=== PATIENT | female | born 1990 | race Caucasian/White ===

== ENCOUNTER → 2017-06-08 | Outpatient (CLI) | payer OTHER ==
[2017-06-08 19:41] LABS: BASO % 0.7 % (0.0-1.0); EOS # 0.1 10^3/uL (0.0-0.50); EOS % 1.6 % (0.0-3.0); HEMATOCRIT 40.2 % (36.0-47.0); HEMOGLOBIN 13.7 g/dl (12.0-16.0); IMMATURE GRANULOCYTE % 0.2 % (0-3.0); LYMPH # 2.2 10^3/uL (1.5-6.5); LYMPH % 40.6 % (24.0-44.0); MEAN CORPUSCULAR HEMOGLOBIN 29.8 pg (27.0-33.0); MEAN CORPUSCULAR HGB CONC 34.1 g/dl (32.0-36.5); MEAN CORPUSCULAR VOLUME 87.6 fl (80.0-96.0); MONO # 0.5 10^3/uL (0.0-0.8); MONO % 9.7 % (0.0-5.0); NEUTROPHILS # 2.6 10^3/uL (1.8-7.7); NEUTROPHILS % 47.2 % (36.0-66.0); PLATELET COUNT, AUTOMATED 274 10^3/uL (150-450); RED BLOOD COUNT 4.59 10^6/uL (4.00-5.40); RED CELL DISTRIBUTION WIDTH 12.3 % (11.5-14.5); WHITE BLOOD COUNT 5.5 10^3/uL (4.0-10.0)
[2017-06-08 19:59] LABS: ALBUMIN 4.5 GM/DL (3.2-5.2); ALBUMIN/GLOBULIN RATIO 1.61 (1.00-1.93); ALKALINE PHOSPHATASE 86 U/L (45-117); ALT/SGPT 17 U/L (12-78); ANION GAP 7 MEQ/L (8-16); AST/SGOT 9 U/L (7-37); BILIRUBIN,TOTAL 0.4 MG/DL (0.2-1.0); BLOOD UREA NITROGEN 11 MG/DL (7-18); CARBON DIOXIDE LEVEL 28 MEQ/L (21-32); CHLORIDE LEVEL 106 MEQ/L (98-107); CREATININE FOR GFR 0.53 MG/DL (0.55-1.30); GLOMERULAR FILTRATION RATE > 60.0 (>60); GLUCOSE, FASTING 83 MG/DL (70-100); POTASSIUM SERUM 4.5 MEQ/L (3.5-5.1); SODIUM LEVEL 141 MEQ/L (136-145); TOTAL PROTEIN 7.3 GM/DL (6.4-8.2)
== END ==
LOC: M WUC 16:44
DX: R10.84 Generalized abdominal pain (principal); R93.3 Abnormal findings on diagnostic imaging of other parts of digestive tract
CPT/HCPCS: 80053

== ENCOUNTER → 2017-06-08 | Outpatient (REF) | payer SELFPAY | LOC: M LAB REF 19:11 | DX: R10.84 Generalized abdominal pain (principal) ==

== ENCOUNTER → 2017-11-12 | Outpatient (CLI) | payer OTHER | LOC: M RAD 11:32 | DX: R10.2 Pelvic and perineal pain (principal) | CPT/HCPCS: 76856 ==

== ENCOUNTER → 2018-01-03 | Outpatient (CLI) | payer OTHER | LOC: M WUC 15:44 | DX: M79.672 Pain in left foot (principal) | CPT/HCPCS: 73630 ==

== ENCOUNTER → 2018-01-09 | Outpatient (REF) | payer OTHER | LOC: M LAB REF 13:29 | DX: Z12.4 Encounter for screening for malignant neoplasm of cervix (principal) ==

== ENCOUNTER → 2018-03-01 | Outpatient (REF) | payer OTHER ==
[2018-03-01 13:21] LABS: BASO % 0.4 % (0.0-1.0); EOS # 0.1 10^3/uL (0.0-0.50); EOS % 1.8 % (0.0-3.0); HEMATOCRIT 42.9 % (36.0-47.0); HEMOGLOBIN 14.3 g/dl (12.0-15.5); IMMATURE GRANULOCYTE % 0.1 % (0-3.0); LYMPH # 2.1 10^3/uL (1.5-6.5); LYMPH % 29.3 % (24.0-44.0); MEAN CORPUSCULAR HEMOGLOBIN 30.6 pg (27.0-33.0); MEAN CORPUSCULAR HGB CONC 33.3 g/dl (32.0-36.5); MEAN CORPUSCULAR VOLUME 91.9 fl (80.0-96.0); MONO # 0.4 10^3/uL (0.0-0.8); MONO % 5.5 % (0.0-5.0); NEUTROPHILS # 4.4 10^3/uL (1.8-7.7); NEUTROPHILS % 62.9 % (36.0-66.0); PLATELET COUNT, AUTOMATED 300 10^3/uL (150-450); RED BLOOD COUNT 4.67 10^6/uL (4.00-5.40)
[2018-03-01 13:50] LABS: FREE T4 1.06 NG/DL (0.76-1.46)
== END ==
LOC: M SFHCADAM 11:11
DX: N92.1 Excessive and frequent menstruation with irregular cycle (principal); F32.9 Major depressive disorder, single episode, unspecified
CPT/HCPCS: 84443

== ENCOUNTER → 2018-06-09 | Outpatient (REF) | payer OTHER ==
[~2018-06-09] MED LIST: COLA100C5 PO; IBUP-1114 PO; MAPA500T2 PO; VITAPRTA PO
== END ==
LOC: M LAB REF 12:02
PROVIDERS: ATTEND Physician Assistant
DX: J04.2 Acute laryngotracheitis (principal)

== ENCOUNTER → 2018-08-05 | Outpatient (REF) | payer BC ==
[2018-08-05 19:54] LABS: BASO % 0.7 % (0.0-1.0); EOS # 0.2 10^3/uL (0.0-0.50); EOS % 2.9 % (0.0-3.0); HEMOGLOBIN 13.5 g/dl (12.0-15.5); LYMPH # 1.9 10^3/uL (1.5-6.5); LYMPH % 32.1 % (24.0-44.0); MEAN CORPUSCULAR HEMOGLOBIN 30.6 pg (27.0-33.0); MEAN CORPUSCULAR HGB CONC 32.1 g/dl (32.0-36.5); MEAN CORPUSCULAR VOLUME 95.2 fl (80.0-96.0); MONO # 0.3 10^3/uL (0.0-0.8); MONO % 5.5 % (0.0-5.0); NEUTROPHILS # 3.4 10^3/uL (1.8-7.7); NEUTROPHILS % 58.5 % (36.0-66.0); PLATELET COUNT, AUTOMATED 283 10^3/uL (150-450); RED BLOOD COUNT 4.41 10^6/uL (4.00-5.40); WHITE BLOOD COUNT 5.8 10^3/uL (4.0-10.0)
[2018-08-05 20:10] LABS: ALBUMIN 4.3 GM/DL (3.2-5.2); ALT/SGPT 18 U/L (12-78); BILIRUBIN,TOTAL 0.7 MG/DL (0.2-1.0); BLOOD UREA NITROGEN 11 MG/DL (7-18); CALCIUM LEVEL 8.7 MG/DL (8.5-10.1); CARBON DIOXIDE LEVEL 30 MEQ/L (21-32); CHLORIDE LEVEL 107 MEQ/L (98-107); GLOMERULAR FILTRATION RATE > 60.0 (>60); GLUCOSE, FASTING 77 MG/DL (70-100); POTASSIUM SERUM 4.3 MEQ/L (3.5-5.1); SODIUM LEVEL 143 MEQ/L (136-145); TOTAL PROTEIN 7.6 GM/DL (6.4-8.2)
== END ==
LOC: M LABDRWAD 19:28
PROVIDERS: ATTEND Family Medicine
DX: R42 Dizziness and giddiness (principal)

== ENCOUNTER → 2018-08-08 | Outpatient (CLI) | payer BC ==
--- NOTE | 2018-08-09 01:41 | REP ---
Clinical: Pain. Technique: AP, lateral, bilateral oblique views of the left fifth toe. Findings: No obvious acute fracture or dislocation is appreciated. However subtle injury involving the distal phalanx cannot be excluded. Clinical correlation is recommended. No subcutaneous emphysema or foreign body. Impression: No definite acute fracture dislocation, but subtle injury involving the fifth toe distal phalanx cannot be excluded and warrants correlation. Electronically Signed by Gama Stringer MD 08/09/2018 01:32 A
== END ==
LOC: M WUC 14:15
PROVIDERS: ATTEND Physician Assistant
DX: M79.675 Pain in left toe(s) (principal)

== ENCOUNTER → 2018-10-15 | Outpatient (CLI) | payer BC, OTHER ==
[2018-10-15 20:28] LABS: ALBUMIN 4.2 GM/DL (3.2-5.2); ALT/SGPT 19 U/L (12-78); BILIRUBIN,TOTAL 0.2 MG/DL (0.2-1.0); BLOOD UREA NITROGEN 13 MG/DL (7-18); CALCIUM LEVEL 9.3 MG/DL (8.5-10.1); CARBON DIOXIDE LEVEL 29 MEQ/L (21-32); CHLORIDE LEVEL 106 MEQ/L (98-107); CREATININE FOR GFR 0.68 MG/DL (0.55-1.30); GLOMERULAR FILTRATION RATE > 60.0 (>60); GLUCOSE, FASTING 86 MG/DL (70-100); POTASSIUM SERUM 4.3 MEQ/L (3.5-5.1); SODIUM LEVEL 139 MEQ/L (136-145); TOTAL PROTEIN 7.1 GM/DL (6.4-8.2)
== END ==
LOC: M WUC 15:58
PROVIDERS: ATTEND Family Medicine
DX: R42 Dizziness and giddiness (principal); R19.7 Diarrhea, unspecified

== ENCOUNTER → 2018-10-25 | Outpatient (CLI) | payer BC, OTHER ==
--- NOTE | 2018-10-25 11:56 | REPVR ---
EXAM: MR Head Without and With Contrast EXAM DATE/TIME: 10/25/2018 9:36 AM CLINICAL HISTORY: 28 years old, female; Patient HX: Dizziness and h/a increasing in frequency and severity; Additional info: Vertigo TECHNIQUE: Imaging protocol: MR of the head without and with intravenous contrast. Contrast material: PROHANCE;Contrast volume: 11 ml;Contrast route: 23G BUTTERFLY; COMPARISON: No relevant prior studies available. FINDINGS: Brain: Normal. No acute infarct. No hemorrhage. No significant white matter disease. No edema. Ventricles: Normal. No ventriculomegaly. Bones/joints: Unremarkable. Soft tissues: Normal. Sinuses: Normal as visualized. No acute sinusitis. Mastoid air cells: Normal as visualized. No mastoid effusion. Orbits: Unremarkable. There is no abnormal enhancement. IMPRESSION: No acute findings. Electronically signed by: Matthew Lindo On 10/25/2018 11:56:28 AM
== END ==
LOC: M PLARAD 07:43
PROVIDERS: ATTEND Family Medicine
DX: R42 Dizziness and giddiness (principal)

== ENCOUNTER 2019-01-07 06:34 | Day surgery (SDC) | payer BC, OTHER ==
[~2019-01-07] VITALS: Ht 172.7 cm; Wt 78.0 kg
[~2019-01-07 06:34] MED LIST changes: +CETI10TA4 PO; +LAMI1TAB9 PO; +SERO150T2 PO; +WELLTAB38 PO
[2019-01-07] MEDS ORDERED: LIDOCAINE 2% INJ 100 MG/5 ML SDV (FOR ANES.) As Ordered ONE (07:02)
[2019-01-07] MEDS ORDERED: PROPOFOL 200 MG/20 ML VIAL As Ordered ONE (07:02)
[2019-01-07] MEDS: NS 1,000 ML IV ONE (07:02)
--- NOTE | 2019-01-07 07:59 | ROOR ---
Patient Name: Ajay Branch Procedure Date: 01/07/2019 7:32 AM Date of : 1990 Age: 28 Room: [facility] Gender: Female Note Status: Finalized Procedure: Colonoscopy Indications: Generalized abdominal pain, Change in bowel habits, Constipation Providers: Martinez CONTRERAS MD Referring MD: Rosemary GOMES DO Requesting Provider: Medicines: Monitored Anesthesia Care Complications: No immediate complications. Procedure: Pre-Anesthesia Assessment: - The heart rate, respiratory rate, oxygen saturations, blood pressure, adequacy of pulmonary ventilation, and response to care were monitored throughout the procedure. The Colonoscope was introduced through the anus and advanced to the cecum, identified by appendiceal orifice and ileocecal valve. The colonoscopy was performed without difficulty. The patient tolerated the procedure well. The quality of the bowel preparation was adequate and fair. The bowel preparation used was TriLyte and magnesium citrate. Findings: The perianal and digital rectal examinations were normal. Small Internal Hemorrhoids. The entire examined colon appeared normal on direct and retroflexion views. The terminal ileum appeared normal. Impression: - Preparation of the colon was fair/adequate after lavage. - Small Internal Hemorrhoids. - The entire colon is normal on direct and retroflexion views. - The examined portion of the ileum was normal. - No specimens collected. Recommendation: - Continue present medications. Martinez Contreras MD Martinez CONTRERAS MD 01/07/2019 7:58:31 AM Electronically signed by Martinez CONTRERAS MD Number of Addenda: 0 Note Initiated On: 01/07/2019 7:32 AM Estimated Blood Loss: Estimated blood loss: none.
[2019-01-07 08:10] VITALS: BP 123/68
== END 2019-01-07 08:16 | disposition home or self-care (01) ==
LOC: M OPP 06:34
PROVIDERS: ATTEND Internal Medicine Gastroenterology
DX: R10.9 Unspecified abdominal pain (principal); K59.00 Constipation, unspecified; K64.8 Other hemorrhoids; M41.9 Scoliosis, unspecified; F41.9 Anxiety disorder, unspecified; F31.9 Bipolar disorder, unspecified; Z79.899 Other long term (current) drug therapy

== ENCOUNTER → 2019-04-09 | Outpatient (CLI) | payer BC ==
[~2019-04-09] MED LIST changes: +GASTROGRAFIN SOLUTION 30ML (Q9963) As Ordered ONE; +ISOVUE-370 76% 100ML VIAL (Q9967) As Ordered ONE
[2019-04-09 13:33] LABS: BASO # 0.1 10^3/uL (0.0-0.2); BASO % 0.5 % (0.0-1.0); EOS # 0.2 10^3/uL (0.0-0.5); EOS % 1.2 % (0.0-3.0); HEMATOCRIT 44.4 % (36.0-47.0); HEMOGLOBIN 14.6 g/dl (12.0-15.5); LYMPH # 3.2 10^3/uL (1.5-5.0); LYMPH % 24.7 % (24.0-44.0); MEAN CORPUSCULAR HEMOGLOBIN 30.7 pg (27.0-33.0); MEAN CORPUSCULAR HGB CONC 32.9 g/dl (32.0-36.5); MEAN CORPUSCULAR VOLUME 93.3 fl (80.0-96.0); MONO # 0.8 10^3/uL (0.0-0.8); MONO % 5.8 % (0.0-5.0); NEUTROPHILS # 8.7 10^3/uL (1.5-8.5); PLATELET COUNT, AUTOMATED 371 10^3/uL (150-450); RED BLOOD COUNT 4.76 10^6/uL (4.00-5.40); URINE PREG TEST NEGATIVE (NEGATIVE); WHITE BLOOD COUNT 12.9 10^3/uL (4.0-10.0)
[2019-04-09 14:06] LABS: ALBUMIN 4.4 GM/DL (3.2-5.2); ALT/SGPT 21 U/L (12-78); BILIRUBIN,TOTAL 0.4 MG/DL (0.2-1.0); BLOOD UREA NITROGEN 10 MG/DL (7-18); CALCIUM LEVEL 9.1 MG/DL (8.5-10.1); CARBON DIOXIDE LEVEL 30 MEQ/L (21-32); CHLORIDE LEVEL 105 MEQ/L (98-107); CREATININE FOR GFR 0.75 MG/DL (0.55-1.30); GLOMERULAR FILTRATION RATE > 60.0 (>60); GLUCOSE, FASTING 86 MG/DL (70-100); POTASSIUM SERUM 4.2 MEQ/L (3.5-5.1); SODIUM LEVEL 139 MEQ/L (136-145); TOTAL PROTEIN 7.5 GM/DL (6.4-8.2)
--- NOTE | 2019-04-09 16:06 | REP ---
CT abdomen and pelvis with IV and oral contrast: HISTORY: Right lower quadrant pain. No comparison CT study. CT contrast dose: 100 ml of intravenous Isovue 370. Findings: Preliminary digital prosthodontist/educator radiograph demonstrates surgical stabilization fusion of fusion fazal in the thoracolumbar spine extending bilaterally to the L3 level. Bowel gas pattern shows moderate stool in the right colon and gaseous distension in the transverse colon. The lung bases show no significant abnormality on axial CT images. The liver and the spleen are normal in size homogeneous in texture. No abnormality is noted in the gallbladder or the pancreas. The kidneys enhance symmetrically and appear morphologically intact. There is some spray artifact emanating from the metallic spine fusion hardware throughout the upper abdomen. No retroperitoneal mass or adenopathy is observed. The cecum is quite low in the pelvis. The appendix is not confidently identified but no inflammatory changes are seen adjacent to the cecum. No abdominal wall defect is observed. There are small cystic areas in each ovary. No uterine abnormality is observed. Small and large bowel loops are unremarkable by CT. There is moderate stool in the right colon. No obstruction is seen. Impression: No acute abdominal abnormality or pelvic abnormality. Thoracolumbar spine fusion with scoliotic curve. Electronically Signed by Donovan Pinto MD 04/09/2019 04:45 P
== END ==
LOC: M RAD 13:05
PROVIDERS: ATTEND Family Medicine
DX: R10.31 Right lower quadrant pain (principal); Z98.1 Arthrodesis status; M41.34 Thoracogenic scoliosis, thoracic region; N83.201 Unspecified ovarian cyst, right side; N83.202 Unspecified ovarian cyst, left side
CPT/HCPCS: 36415; 74177; 80053; 84703; 85025; Q9963; Q9967

== ENCOUNTER → 2019-06-04 | Outpatient (REF) | payer BC ==
[~2019-06-04] MED LIST changes: -GASTROGRAFIN SOLUTION 30ML (Q9963) As Ordered ONE; -ISOVUE-370 76% 100ML VIAL (Q9967) As Ordered ONE
[2019-06-04 13:09] LABS: BASO % 0.7 % (0.0-1.0); EOS # 0.1 10^3/uL (0.0-0.5); EOS % 0.9 % (0.0-3.0); HEMATOCRIT 40.8 % (36.0-47.0); HEMOGLOBIN 13.3 g/dl (12.0-15.5); LYMPH # 2.1 10^3/uL (1.5-5.0); LYMPH % 36.9 % (24.0-44.0); MEAN CORPUSCULAR HEMOGLOBIN 29.8 pg (27.0-33.0); MEAN CORPUSCULAR HGB CONC 32.6 g/dl (32.0-36.5); MEAN CORPUSCULAR VOLUME 91.5 fl (80.0-96.0); MONO # 0.3 10^3/uL (0.0-0.8); MONO % 5.7 % (0.0-5.0); NEUTROPHILS # 3.2 10^3/uL (1.5-8.5); NEUTROPHILS % 55.6 % (36.0-66.0); PLATELET COUNT, AUTOMATED 295 10^3/uL (150-450); RED BLOOD COUNT 4.46 10^6/uL (4.00-5.40); WHITE BLOOD COUNT 5.8 10^3/uL (4.0-10.0)
[2019-06-04 13:24] LABS: ALBUMIN 4.5 GM/DL (3.2-5.2); ALT/SGPT 23 U/L (12-78); BILIRUBIN,TOTAL 0.4 MG/DL (0.2-1.0); BLOOD UREA NITROGEN 9 MG/DL (7-18); CALCIUM LEVEL 8.8 MG/DL (8.5-10.1); CARBON DIOXIDE LEVEL 30 MEQ/L (21-32); CHLORIDE LEVEL 108 MEQ/L (98-107); CREATININE FOR GFR 0.75 MG/DL (0.55-1.30); FREE T4 0.89 NG/DL (0.76-1.46); GLOMERULAR FILTRATION RATE > 60.0 (>60); GLUCOSE, FASTING 82 MG/DL (70-100); IRON (FE) 161 UG/DL (50-170); POTASSIUM SERUM 4.5 MEQ/L (3.5-5.1); SODIUM LEVEL 142 MEQ/L (136-145); TOTAL PROTEIN 7.2 GM/DL (6.4-8.2)
== END ==
LOC: M SFHCADAM 09:59
PROVIDERS: ATTEND Family Medicine
DX: R42 Dizziness and giddiness (principal); R53.83 Other fatigue

== ENCOUNTER 2019-10-31 10:23 | Emergency (ER) | payer BC ==
[2019-12-07 17:08] LABS: HEMATOCRIT 38.3 % (36.0-47.0); HEMOGLOBIN 12.4 g/dl (12.0-15.5); MEAN CORPUSCULAR HEMOGLOBIN 27.9 pg (27.0-33.0); MEAN CORPUSCULAR HGB CONC 32.4 g/dl (32.0-36.5); MEAN CORPUSCULAR VOLUME 86.1 fl (80.0-96.0); PLATELET COUNT, AUTOMATED 329 10^3/uL (150-450); RED BLOOD COUNT 4.45 10^6/uL (4.00-5.40); WHITE BLOOD COUNT 6.4 10^3/uL (4.0-10.0)
--- NOTE | 2019-12-19 14:32 | REP ---
LIMITED ABDOMINAL ULTRASOUND: HISTORY: Periumbilical pain. TECHNIQUE: Directed real time, farris scale and color evaluation using linear high frequency transducer. FINDINGS: Ultrasound examination of the periumbilical region demonstrates a nonreducible fat-containing periumbilical hernia measuring approximately 2 cm diameter. Peritoneal defect measures between 6.3 mm and 8.1 mm on rest and Valsalva, respectively. No associated bowel herniation. IMPRESSION: Small nonreducible fat-containing periumbilical hernia. MTDD
--- NOTE | 2019-12-19 14:34 | REP ---
ANTERIOR ABDOMINAL WALL ULTRASOUND: HISTORY: Periumbilical pain. FINDINGS: Real time sonographic evaluation of the periumbilical wall performed. There is a small defect in the anterior abdominal wall at the umbilicus consistent with a small umbilical hernia. This appears to contain a small amount of peritoneal fat, but no bowel. The diameter of the defect at rest is 6 mm and with Valsalva maneuver is 8 mm. IMPRESSION: Small umbilical hernia containing fat but no bowel, as discussed above. MTDD
[2020-01-10 11:22] LABS: ALBUMIN 3.9 GM/DL (3.2-5.2); ALT/SGPT 28 U/L (12-78); BILIRUBIN,DIRECT 0.1 MG/DL (0.0-0.2); BILIRUBIN,TOTAL 0.3 MG/DL (0.2-1.0); BLOOD UREA NITROGEN 8 MG/DL (7-18); CALCIUM LEVEL 8.8 MG/DL (8.5-10.1); CARBON DIOXIDE LEVEL 28 MEQ/L (21-32); CHLORIDE LEVEL 108 MEQ/L (98-107); CREATININE FOR GFR 0.66 MG/DL (0.55-1.30); GLOMERULAR FILTRATION RATE > 60.0 (>60); GLUCOSE, FASTING 84 MG/DL (70-100); HCG, SERUM QUALITATIVE NEGATIVE (NEGATIVE); LIPASE 33 U/L (73-393); SODIUM LEVEL 141 MEQ/L (136-145); TOTAL PROTEIN 6.8 GM/DL (6.4-8.2)
== END 2019-10-31 13:57 | disposition home or self-care (01) ==
LOC: M ED 10:23
DX: K42.9 Umbilical hernia without obstruction or gangrene (principal); K59.00 Constipation, unspecified

== ENCOUNTER → 2019-12-02 | Outpatient (REF) | payer BC ==
[~2019-12-02] MED LIST changes: +APAP500T10 PO; +AUGM875T28 PO; +FAMO1TAB11; +FLUT50SP33 NARES; +GNP200CA2 PO; +LACT10SO3 PO; +VENL75CA47 PO
[2019-12-02 23:00] LABS: CHLAMYDIA DNA AMPLIFICATION NEGATIVE (NEGATIVE); GC DNA AMPLIFICATION NEGATIVE (NEGATIVE)
== END ==
LOC: M LAB REF 19:23
PROVIDERS: ATTEND Physician Assistant
DX: R10.84 Generalized abdominal pain (principal)

== ENCOUNTER 2019-12-04 10:19 | Emergency (ER) | payer BC ==
[~2019-12-04] VITALS: Ht 172.7 cm; Wt 85.9 kg
[~2019-12-04 10:19] MED LIST changes: -APAP500T10 PO; -AUGM875T28 PO; -FAMO1TAB11; -FLUT50SP33 NARES; -GNP200CA2 PO; -LACT10SO3 PO; -VENL75CA47 PO
[2019-12-04 11:09] LABS: BASO # 0.1 10^3/uL (0.0-0.2); BASO % 0.6 % (0.0-1.0); EOS # 0.1 10^3/uL (0.0-0.5); EOS % 1.6 % (0.0-3.0); HEMATOCRIT 39.7 % (36.0-47.0); HEMOGLOBIN 13.2 g/dl (12.0-15.5); LYMPH # 2.5 10^3/uL (1.5-5.0); LYMPH % 31.3 % (24.0-44.0); MEAN CORPUSCULAR HEMOGLOBIN 28.6 pg (27.0-33.0); MEAN CORPUSCULAR HGB CONC 33.2 g/dl (32.0-36.5); MEAN CORPUSCULAR VOLUME 86.1 fl (80.0-96.0); MONO # 0.6 10^3/uL (0.0-0.8); MONO % 6.9 % (0.0-5.0); NEUTROPHILS # 4.7 10^3/uL (1.5-8.5); NEUTROPHILS % 59.5 % (36.0-66.0); PLATELET COUNT, AUTOMATED 320 10^3/uL (150-450); RED BLOOD COUNT 4.61 10^6/uL (4.00-5.40)
[2019-12-04 11:24] LABS: HCG, SERUM QUALITATIVE NEGATIVE (NEGATIVE)
[2019-12-04 11:26] LABS: ALBUMIN 4.2 GM/DL (3.2-5.2); ALT/SGPT 29 U/L (12-78); BILIRUBIN,DIRECT 0.1 MG/DL (0.0-0.2); BILIRUBIN,TOTAL 0.6 MG/DL (0.2-1.0); BLOOD UREA NITROGEN 11 MG/DL (7-18); CALCIUM LEVEL 9.1 MG/DL (8.5-10.1); CARBON DIOXIDE LEVEL 29 MEQ/L (21-32); CHLORIDE LEVEL 106 MEQ/L (98-107); CREATININE FOR GFR 0.63 MG/DL (0.55-1.30); GLOMERULAR FILTRATION RATE > 60.0 (>60); GLUCOSE, FASTING 97 MG/DL (70-100); LIPASE 57 U/L (73-393); SODIUM LEVEL 138 MEQ/L (136-145); TOTAL PROTEIN 7.5 GM/DL (6.4-8.2)
--- NOTE | 2019-12-04 11:40 | REPVR ---
PROCEDURE INFORMATION: Exam: US Abdomen, Limited; Right Upper Quadrant Exam date and time: 12/04/2019 11:31 AM Age: 29 years old Clinical indication: Abdominal pain; Acute; Additional info: Pain with palpation ruq TECHNIQUE: Imaging protocol: US abdomen. Real time ultrasound with image documentation. Limited exam focused on the right upper quadrant. COMPARISON: CT ABD PELVIS WITH CONTRAST 04/09/2019 3:06 PM FINDINGS: Liver: No focal hepatic mass. Gallbladder: No cholelithiasis, gallbladder wall edema, or pericholecystic fluid. Common bile duct: Normal caliber of the common bile duct measuring 5 mm in diameter. Pancreas: No acute sonographic abnormality in the visualized pancreas. Right kidney: 3 cm nodular isoechoic lesion , believed to represent a column of Louie, which can be confirmed with contrast enhanced CT, as clinically indicated. No hydronephrosis. IMPRESSION: 3 cm nodular isoechoic lesion in the right kidney, believed to represent a column of Louie, which can be confirmed with contrast enhanced CT, as clinically indicated. Electronically signed by: Wayne Méndez On 12/04/2019 11:39:44 AM
[2019-12-04 12:15] VITALS: BP 117/74
--- NOTE | 2019-12-06 15:26 | ED PDOC ---
Post-Departure Follow-Up dr tapia faxed formal report of gb us for fu Kemal Parker MD Dec 06, 2019 15:26
== END 2019-12-04 12:16 | disposition home or self-care (01) ==
LOC: M ED 10:19
DX: R10.9 Unspecified abdominal pain (principal); R11.0 Nausea; Z79.899 Other long term (current) drug therapy; Z87.440 Personal history of urinary (tract) infections

== ENCOUNTER → 2019-12-14 | Outpatient (CLI) | payer BC ==
[~2019-12-14] MED LIST changes: +APAP500T10 PO; +AUGM875T28 PO; +FAMO1TAB11; +FLUT50SP33 NARES; +GNP200CA2 PO; +LACT10SO3 PO; +VENL75CA47 PO
== END ==
LOC: M LABSMTC 08:58
PROVIDERS: ATTEND Anesthesiology
DX: Z01.818 Encounter for other preprocedural examination (principal); Z11.59 Encounter for screening for other viral diseases; Z20.828 Contact with and (suspected) exposure to other viral communicable diseases
CPT/HCPCS: C9803; U0003

== ENCOUNTER 2019-12-19 07:39 | Day surgery (SDC) | payer BC ==
[~2019-12-19] VITALS: Ht 172.7 cm; Wt 87.5 kg
[~2019-12-19 07:39] MED LIST changes: -APAP500T10 PO; -AUGM875T28 PO; +BUPIVACAINE/EPIN 0.25% 30 ML VIAL As Ordered ONE; -FAMO1TAB11; -FLUT50SP33 NARES; -GNP200CA2 PO; -LACT10SO3 PO; +LR 1,000 ML IV ONE; -VENL75CA47 PO; +ceFAZolin SOD 2 GM in IV 1 EA IV ONE
[2019-12-19] MEDS ORDERED: ACETAMINOPHEN 1000MG 100ML IV BTL (OFIRMEV) (J0131 PER 10MG) As Ordered ONE (08:01)
[2019-12-19] MEDS ORDERED: ROCURONIUM BROMIDE 50 MG/5 ML VIAL As Ordered ONE (08:01)
[2019-12-19] MEDS ORDERED: propofoL 200 MG/20 ML VIAL As Ordered ONE ×2 (08:01→09:58)
[2019-12-19] MEDS ORDERED: ONDANSETRON 4MG/2ML VIAL As Ordered ONE (08:01)
[2019-12-19] MEDS ORDERED: dexameTHASONE 4 MG/ML 1ML VIAL (J1100 PER 1MG) As Ordered ONE (08:01)
[2019-12-19] MEDS ORDERED: LIDOCAINE 2% 100MG/5ML SDV (FOR ANES.) As Ordered ONE (08:01)
[2019-12-19] MEDS ORDERED: MIDAZOLAM INJ 2MG/2ML VIAL (J2250 PER 1MG) As Ordered ONE (08:01)
[2019-12-19] MEDS ORDERED: SUGAMMADEX SODIUM 500 MG/5 ML VIAL (BRIDION) As Ordered ONE (08:01)
[2019-12-19] MEDS ORDERED: KETOROLAC 60MG 2ML VIAL As Ordered ONE (08:01)
[2019-12-19] MEDS ORDERED: fentaNYL 100 MCG/2 ML INJECTION (J3010) As Ordered ONE ×2 (08:01→09:46)
[2019-12-19] MEDS ORDERED: LACT10SO3 PO (08:40)
[2019-12-19] MEDS ORDERED: VENL75CA47 PO (08:40)
[2019-12-19] MEDS ORDERED: ceFAZolin 2 GM/D5W 50 ML IV BAG (J0690 PER 500MG) As Ordered ONE (08:44)
[2019-12-19] MEDS ORDERED: oxyCODONE 5MG TAB As Ordered ONE ×2 (10:34→12:35)
[2019-12-19] MEDS: oxyCODONE 5MG TAB PO PRN ×2 (10:38→12:35)
[2019-12-19] MEDS ORDERED: LR 1,000 ML IV SCH (11:00)
[2019-12-19] MEDS ORDERED: ONDANSETRON 4MG/2ML VIAL IV PRN (11:00)
[2019-12-19] MEDS ORDERED: NORCO, ANEXSIA 5/325MG TABLET (HYDROcodone/ACETAMINOPHEN) PO PRN (11:00)
[2019-12-19] MEDS ORDERED: HYDROMORPHONE HCL 0.5 MG/ 0.5 ML SYRINGE (J1170 PER 1) IV PRN (11:00)
[2019-12-19] MEDS ORDERED: fentaNYL 100 MCG/2 ML INJECTION (J3010) IV PRN (11:00)
[2019-12-19 13:00] VITALS: BP 106/69
--- NOTE | 2020-01-05 08:19 | RO ---
DATE OF OPERATION: 12/19/19 PREOPERATIVE DIAGNOSIS: Incarcerated umbilical hernia. POSTOPERATIVE DIAGNOSIS: Incarcerated umbilical hernia. PROCEDURE: Robotic incarcerated umbilical hernia repair. SURGEON: Juan Garcias DO ASSIST: Jordyn Ramires ANESTHESIA: General. EBL: 5. COMPLICATIONS: None. INDICATIONS FOR PROCEDURE: The patient is a 29-year-old female who presents with periumbilical pain, found to have a very small incarcerated umbilical hernia. Recommendation was to proceed with robotic repair. Risks and benefits of the procedure not limited to but including bleeding, infection, hernia recurrence, hernia formation, damage to surrounding structures, need for further surgery were discussed in detail with the patient. Informed consent was obtained and procedure was planned. PROCEDURE: The patient was brought back to operating room #7. After sufficient sedation the abdomen was sterilely prepped and draped. Time out was done confirming proper patient, proper procedure. Following that, an 8 mm incision was made in the left lower quadrant and Veress needle was inserted, and the abdomen was insufflated to 15 mmHg. Veress needle was removed and an 8 mm Optiview robotic port was used to gain access to the abdomen. Once the abdomen was entered two more 8 mm ports were placed. The robot was docked to the ports from the console. The preperitoneum was entered superior to the umbilicus with horizontal incision to the preperitoneal space. Preperitoneal space was dissected inferiorly circumferentially around the umbilical defect which measured less than 1 cm. There was a small non-preperitoneal fat was incarcerated through this defect that was reduced. Once the area was cleared #0 Stratafix suture was used to close the defect. Once that was completed a 5 cm round piece of ProGrip mesh was placed over top of the defect and surrounding area due to fascial weakness in the area. Once this was completed the peritoneum was closed over top of it with 2-0 V-Loc. The abdomen was desufflated, skin incisions were closed with 4-0 Vicryl subcuticular sutures. The abdomen was cleaned and dried; Steri-Strips, 4 x 4 and tape were applied. This ended the procedure. [facility]OSPITALWilliam
== END 2019-12-19 14:00 | disposition home or self-care (01) ==
LOC: M OPP 07:39
PROVIDERS: ATTEND Surgery
DX: K42.0 Umbilical hernia with obstruction, without gangrene (principal); F42.9 Obsessive-compulsive disorder, unspecified; F41.9 Anxiety disorder, unspecified; D64.9 Anemia, unspecified; Z79.899 Other long term (current) drug therapy
CPT/HCPCS: 49653; 81025; C1781; J0131; J0690; J1100; J1885; J2250; J2405; J3010; S2900

== ENCOUNTER 2019-12-25 20:24 | Emergency (ER) | payer BC ==
[~2019-12-25] VITALS: Ht 172.7 cm; Wt 86.5 kg
[~2019-12-25 20:24] MED LIST changes: -BUPIVACAINE/EPIN 0.25% 30 ML VIAL As Ordered ONE; +LACT10SO3 PO; -LR 1,000 ML IV ONE; +VENL75CA47 PO; -ceFAZolin SOD 2 GM in IV 1 EA IV ONE
[2019-12-25 20:26] VITALS: BP 129/79
[2019-12-25] MEDS ORDERED: FLUT50SP33 NARES (20:35)
[2019-12-25] MEDS ORDERED: AUGM875T28 PO (20:35)
[2019-12-25] MEDS ORDERED: APAP500T10 PO (20:36)
[2019-12-25] MEDS ORDERED: GNP200CA2 PO (20:38)
== END 2019-12-25 22:46 | disposition left against medical advice (07) ==
LOC: M ED 20:24
DX: Z53.21 Procedure and treatment not carried out due to patient leaving prior to being seen by health care provider (principal)

== ENCOUNTER 2019-12-29 09:31 | Emergency (ER) | payer BC ==
[~2019-12-29] VITALS: Ht 172.7 cm; Wt 88.6 kg
[~2019-12-29 09:31] MED LIST changes: +APAP500T10 PO; +AUGM875T28 PO; +FLUT50SP33 NARES; +GNP200CA2 PO
[2019-12-29] MEDS ORDERED: FAMO1TAB11 (09:39)
[2019-12-29] MEDS ORDERED: IBUPROFEN 800 MG TAB PO ONE (11:30)
--- NOTE | 2019-12-29 13:29 | REPVR ---
PROCEDURE INFORMATION: Exam: US Abdomen; Limited Exam date and time: 12/29/2019 1:06 PM Age: 29 years old Clinical indication: Abdominal pain; Tenderness; Left upper quadrant (luq); Prior surgery; Surgery date: <1 month; Additional info: Pain luq concern for new hernia formation at surgiccal site TECHNIQUE: Imaging protocol: Limited ultrasound of the left upper quadrant. COMPARISON: GALLBLADDER US 12/04/2019 11:04 AM FINDINGS: No focal mass or fluid collection is identified in the visualized left upper quadrant. Note the abdominal viscera were not visualized on the images obtained. IMPRESSION: No focal mass or fluid collection is identified in the visualized left upper quadrant. Electronically signed by: Wayne Méndez On 12/29/2019 13:29:00 PM
[2019-12-29 14:08] VITALS: BP 126/78
== END 2019-12-29 14:10 | disposition home or self-care (01) ==
LOC: M ED 09:31
DX: G89.18 Other acute postprocedural pain (principal); Z79.899 Other long term (current) drug therapy; J30.9 Allergic rhinitis, unspecified

== ENCOUNTER → 2020-01-05 | Outpatient (CLI) | payer BC ==
[~2020-01-05] MED LIST changes: +FAMO1TAB11
== END ==
LOC: M RAD 07:55
PROVIDERS: ATTEND Internal Medicine Gastroenterology
DX: Z53.9 Procedure and treatment not carried out, unspecified reason (principal); K82.8 Other specified diseases of gallbladder; R11.0 Nausea; R10.84 Generalized abdominal pain

== ENCOUNTER → 2020-01-15 | Outpatient (REF) | payer BC | LOC: M SFHCWAGY 13:12 | PROVIDERS: ATTEND Nurse Practitioner Women's Health | DX: Z12.4 Encounter for screening for malignant neoplasm of cervix (principal) | CPT/HCPCS: 87624; G0123 ==

== ENCOUNTER → 2020-01-28 | Outpatient (CLI) | payer BC | LOC: M LABSMTC 14:26 | PROVIDERS: ATTEND Anesthesiology | DX: Z01.818 Encounter for other preprocedural examination (principal) | CPT/HCPCS: C9803; U0003 ==

== ENCOUNTER 2020-02-02 14:52 | Day surgery (SDC) | payer BC ==
[~2020-02-02] VITALS: Ht 172.7 cm; Wt 86.2 kg
[~2020-02-02 14:52] MED LIST changes: +NS 1,000 ML IV ONE
[2020-02-02] MEDS ORDERED: fentaNYL 100 MCG/2 ML INJECTION (J3010) As Ordered ONE (16:21)
[2020-02-02] MEDS ORDERED: propofoL 200 MG/20 ML VIAL As Ordered ONE ×2 (16:27→16:32)
[2020-02-02] MEDS ORDERED: LIDOCAINE 2% 100MG/5ML SDV (FOR ANES.) As Ordered ONE (16:27)
--- NOTE | 2020-02-02 16:43 | ROOR ---
Patient Name: Ajay Branch Procedure Date: 02/02/2020 4:26 PM Date of : 1990 Age: 29 Room: [facility] Gender: Female Note Status: Finalized Procedure: Upper GI endoscopy Indications: Nausea Providers: Martinez CONTRERAS MD Referring MD: Rosemary GOMES DO Requesting Provider: Medicines: Monitored Anesthesia Care Complications: No immediate complications. Procedure: Pre-Anesthesia Assessment: - The heart rate, respiratory rate, oxygen saturations, blood pressure, adequacy of pulmonary ventilation, and response to care were monitored throughout the procedure. The Endoscope was introduced through the mouth, and advanced to the second part of duodenum. The upper GI endoscopy was accomplished without difficulty. The patient tolerated the procedure well. Findings: The examined esophagus was normal. Localized mild inflammation characterized by erythema was found at the incisura. Biopsies were taken with a cold forceps for histology. The stomach was otherwise normal. The examined duodenum was normal. Impression: - Normal esophagus. - A small patch of mild gastritis (unknown significance). Biopsied. - Otherwise normal stomach. - Normal examined duodenum. Recommendation: - No ibuprofen, naproxen, or other non-steroidal anti-inflammatory drugs. - Use Pepcid (famotidine) 20 mg PO BID. - Telephone endoscopist for pathology results in 2 weeks. - (await results of your gallbladder nuclear scan) Martinez Contreras MD Martinez CONTRERAS MD 02/02/2020 4:42:21 PM Electronically signed by Martinez CONTRERAS MD Number of Addenda: 0 Note Initiated On: 02/02/2020 4:26 PM Estimated Blood Loss: Estimated blood loss: none.
[2020-02-02 17:00] VITALS: BP 116/67
== END 2020-02-02 17:26 | disposition home or self-care (01) ==
LOC: M OPP 14:52
PROVIDERS: ATTEND Internal Medicine Gastroenterology
DX: R11.0 Nausea (principal); K29.70 Gastritis, unspecified, without bleeding; D13.1 Benign neoplasm of stomach; F41.9 Anxiety disorder, unspecified; F31.9 Bipolar disorder, unspecified; Z79.899 Other long term (current) drug therapy; Z80.0 Family history of malignant neoplasm of digestive organs
CPT/HCPCS: 43239; 88305; J3010

== ENCOUNTER → 2020-02-12 | Outpatient (CLI) | payer BC ==
[~2020-02-12] MED LIST changes: -NS 1,000 ML IV ONE
--- NOTE | 2020-02-12 17:59 | REP ---
INDICATION: LOWER ABDOMINAL PAIN. COMPARISON: 10/31/2019 TECHNIQUE: Two-view supine abdomen FINDINGS: Gas pattern shows scattered stool in the right transverse colon moderate stool in the left and smaller amounts in the rectosigmoid no definite evidence of a significant constipation or obstruction small bowel loops are not dilated. There is a dextro rotatory curve thoracolumbar spine and Vilchis rods are seen extending down to the L3 level with pedicle screws and arch bars. No abnormal calcifications over the renal fossa or expected course of the ureters. Pelvic phleboliths is seen in the right true pelvis. Bony pelvis and sacrum are unremarkable. Hips intact IMPRESSION: 1. Nonspecific gas pattern without obstruction, mass, dilated bowel loops or any significant constipation. 2. Vilchis rods seen extending to the L3 level with pedicle screws and arch bars. 3. No abnormal soft tissue calcifications or significant degenerative changes in the sacrum, pelvis or hips. <Electronically signed by Diony De La Vega > 02/12/20 [id number]
== END ==
LOC: M WUC 17:34
PROVIDERS: ATTEND Physician Assistant
DX: R10.30 Lower abdominal pain, unspecified (principal); Z98.1 Arthrodesis status

== ENCOUNTER → 2020-02-16 | Outpatient (CLI) | payer BC ==
--- NOTE | 2020-02-16 10:25 | REP ---
INDICATION: ABD PAIN,NAUSEA, GB DX, EVAL FOR BILI DYSKINESIA. COMPARISON: None TECHNIQUE/RADIOTRACER AND DOSE: FOLLOWING THE INTRAVENOUS ADMINISTRATION OF 6.6 MCI TECHNETIUM 99 M-MEBROFENIN, MULTIPLE IMAGES OF THE RIGHT UPPER QUADRANT ARE PERFORMED FOR 60 MINUTES. NEXT 8 OZ OF ENSURE ENLIVE IS INGESTED AND FURTHER IMAGING IS PERFORMED FOR 65 MINUTES. FINDINGS: THE GALLBLADDER IS VISUALIZED AT 15 MINUTES POST INJECTION. THERE IS BILIARY TO BOWEL TRANSIT AT 40MINUTES POST INJECTION. THERE IS NO SCINTIGRAPHIC EVIDENCE OF CHOLECYSTITIS. GALLBLADDER EJECTION FRACTION IS CALCULATED TO BE 48% WHICH IS NORMAL. IMPRESSION: NORMAL GALLBLADDER EJECTION FRACTION. <Electronically signed by Juan Herrera > 02/16/20 [id number]
== END ==
LOC: M RAD 07:39
PROVIDERS: ATTEND Internal Medicine Gastroenterology
DX: K82.8 Other specified diseases of gallbladder (principal); R11.0 Nausea; R10.84 Generalized abdominal pain
CPT/HCPCS: 78227; A9537

== ENCOUNTER → 2020-04-09 | Outpatient (CLI) | payer SELFPAY ==
[~2020-04-09] MED LIST changes: -GNP200CA2 PO; +IBUP200C90 PO
== END ==
LOC: M LABSMTC 11:07
PROVIDERS: ATTEND Pediatrics
DX: Z20.822 Contact with and (suspected) exposure to COVID-19 (principal)

== ENCOUNTER → 2020-04-12 | Outpatient (CLI) | payer BC ==
[2020-04-12 15:16] LABS: HEMATOCRIT 36.1 % (36.0-47.0); HEMOGLOBIN 11.4 g/dl (12.0-15.5); MEAN CORPUSCULAR HGB CONC 31.6 g/dl (32.0-36.5); MEAN CORPUSCULAR VOLUME 88.7 fl (80.0-96.0); PLATELET COUNT, AUTOMATED 348 10^3/uL (150-450); RED BLOOD COUNT 4.07 10^6/uL (4.00-5.40); WHITE BLOOD COUNT 5.7 10^3/uL (4.0-10.0)
[2020-04-12 15:58] LABS: ALT/SGPT 19 U/L (12-78); BILIRUBIN,TOTAL 0.3 MG/DL (0.2-1.0); BLOOD UREA NITROGEN 11 MG/DL (7-18); CALCIUM LEVEL 8.9 MG/DL (8.5-10.1); CARBON DIOXIDE LEVEL 28 MEQ/L (21-32); CHLORIDE LEVEL 106 MEQ/L (98-107); CHOLESTEROL LEVEL 174 MG/DL (<200); CHOLESTEROL RISK RATIO 3.702 (<5); CREATININE FOR GFR 0.65 MG/DL (0.55-1.30); FERRITIN 7 NG/ML (8-252); FREE T4 0.84 NG/DL (0.76-1.46); GLOMERULAR FILTRATION RATE > 60.0 (>60); GLUCOSE, FASTING 83 MG/DL (70-100); HDL CHOLESTEROL 47 MG/DL (>40); LDL CHOLESTEROL 112 MG/DL (<100); NON-HDL-C 127 MG/DL; POTASSIUM SERUM 4.2 MEQ/L (3.5-5.1); SODIUM LEVEL 138 MEQ/L (136-145); TOTAL 25(OH) VITAMIN D 14.7 NG/ML (30.0-100.0); TOTAL PROTEIN 7.1 GM/DL (6.4-8.2); TRIGLYCERIDES LEVEL 73 MG/DL (<150)
== END ==
LOC: M WUC 10:56
PROVIDERS: ATTEND Nurse Practitioner Family
DX: R53.82 Chronic fatigue, unspecified (principal); Z13.21 Encounter for screening for nutritional disorder; Z13.220 Encounter for screening for lipoid disorders

== ENCOUNTER → 2020-05-14 | Outpatient (REF) | payer BC | LOC: M SFHCPLAZ 14:32 | PROVIDERS: ATTEND Physician Assistant | DX: N92.6 Irregular menstruation, unspecified (principal) ==

== ENCOUNTER → 2020-06-15 | Outpatient (REF) | payer BC | LOC: M SFHCWAGY 15:09 | PROVIDERS: ATTEND Nurse Practitioner Women's Health | DX: Z11.3 Encounter for screening for infections with a predominantly sexual mode of transmission (principal) ==

== ENCOUNTER → 2020-07-06 | Outpatient (CLI) | payer BC | LOC: M LABSMTC 10:58 | PROVIDERS: ATTEND Pediatrics | DX: Z20.822 Contact with and (suspected) exposure to COVID-19 (principal) ==

== ENCOUNTER → 2020-08-10 | Outpatient (CLI) | payer BC ==
[2020-08-10 19:02] LABS: HEMOGLOBIN 11.6 g/dl (12.0-15.5); MEAN CORPUSCULAR HEMOGLOBIN 28.2 pg (27.0-33.0); MEAN CORPUSCULAR HGB CONC 32.2 g/dl (32.0-36.5); MEAN CORPUSCULAR VOLUME 87.4 fl (80.0-96.0); PLATELET COUNT, AUTOMATED 383 10^3/uL (150-450); RED BLOOD COUNT 4.12 10^6/uL (4.00-5.40); WHITE BLOOD COUNT 8.7 10^3/uL (4.0-10.0)
[2020-08-10 19:25] LABS: TOTAL 25(OH) VITAMIN D 63.1 NG/ML (30.0-100.0)
== END ==
LOC: M LAB 18:11
PROVIDERS: ATTEND Nurse Practitioner Family
DX: D50.8 Other iron deficiency anemias (principal); E55.9 Vitamin D deficiency, unspecified

== ENCOUNTER 2020-11-01 13:28 | Emergency (ER) | payer BC ==
[~2020-11-01] VITALS: Ht 172.7 cm; Wt 85.1 kg
[2020-11-01 13:28] VITALS: BP 122/74
[2020-11-01] MEDS ORDERED: BUSP10TA PO (14:22)
[2020-11-01] MEDS ORDERED: LAMI1TAB7 PO (14:22)
== END 2020-11-01 18:30 | disposition left against medical advice (07) ==
LOC: M ED 13:28
DX: Z53.21 Procedure and treatment not carried out due to patient leaving prior to being seen by health care provider (principal)

== ENCOUNTER → 2020-11-03 | Outpatient (CLI) | payer BC ==
[~2020-11-03] MED LIST changes: +BUSP10TA PO; +LAMI1TAB7 PO
[2020-11-03 15:25] LABS: HEMATOCRIT 43.7 % (36.0-47.0); HEMOGLOBIN 14.6 g/dl (12.0-15.5); MEAN CORPUSCULAR HEMOGLOBIN 28.9 pg (27.0-33.0); MEAN CORPUSCULAR HGB CONC 33.4 g/dl (32.0-36.5); MEAN CORPUSCULAR VOLUME 86.4 fl (80.0-96.0); PLATELET COUNT, AUTOMATED 324 10^3/uL (150-450); RED BLOOD COUNT 5.06 10^6/uL (4.00-5.40); WHITE BLOOD COUNT 6.9 10^3/uL (4.0-10.0)
[2020-11-03 16:02] LABS: ALBUMIN 4.3 GM/DL (3.2-5.2); ALT/SGPT 26 U/L (12-78); BILIRUBIN,TOTAL 0.5 MG/DL (0.2-1.0); BLOOD UREA NITROGEN 10 MG/DL (7-18); CALCIUM LEVEL 9.2 MG/DL (8.5-10.1); CARBON DIOXIDE LEVEL 26 MEQ/L (21-32); CHLORIDE LEVEL 105 MEQ/L (98-107); CREATININE FOR GFR 0.57 MG/DL (0.55-1.30); FERRITIN 49 NG/ML (8-252); GLOMERULAR FILTRATION RATE > 60.0 (>60); GLUCOSE, FASTING 87 MG/DL (70-100); POTASSIUM SERUM 4.3 MEQ/L (3.5-5.1); SODIUM LEVEL 137 MEQ/L (136-145); TOTAL PROTEIN 7.3 GM/DL (6.4-8.2)
[2020-11-03 16:07] LABS: TOTAL 25(OH) VITAMIN D 39.5 NG/ML (30.0-100.0)
== END ==
LOC: M PLALAB 12:22
PROVIDERS: ATTEND Nurse Practitioner Family
DX: R42 Dizziness and giddiness (principal)

== ENCOUNTER 2020-11-15 15:37 | Emergency (ER) | payer BC ==
[~2020-11-15] VITALS: Ht 172.7 cm; Wt 84.1 kg
[2020-11-15 15:38] VITALS: BP 126/97
[2020-11-15] MEDS ORDERED: NS 1,000 ML IV ONE (19:40)
[2020-11-15] MEDS ORDERED: ONDANSETRON 4MG/2ML VIAL IV ONE (19:40)
[2020-11-15 20:33] LABS: APPEARANCE, URINE CLOUDY (CLEAR); BACTERIA, URINE AUTO NEGATIVE (NEGATIVE); BILIRUBIN, URINE AUTO NEGATIVE (NEGATIVE); BLOOD, URINE BLOOD NEGATIVE (NEGATIVE); COLOR, URINE YELLOW (YELLOW); GLUCOSE, URINE (UA) AUTO NEGATIVE (NEGATIVE); KETONE, URINE AUTO 2+ mg/dL (NEGATIVE); LEUKOCYTE ESTERASE, URINE AUTO TRACE (NEGATIVE); MUCUS, URINE LARGE (NEGATIVE); NITRITE, URINE AUTO NEGATIVE (NEGATIVE); PROTEIN, URINE AUTO 1+ mg/dL (NEGATIVE); RBC, URINE AUTO 2 /HPF (0-3); SQUAMOUS EPITHELIAL CELL UR AU 16 /HPF (0-6); UROBILINOGEN, URINE AUTO 0.2 mg/dL (0.0-2.0); WBC, URINE AUTO 3 /HPF (0-3)
[2020-11-15 21:22] LABS: BASO % 0.4 % (0.0-1.0); EOS # 0.1 10^3/uL (0.0-0.5); EOS % 1.1 % (0.0-3.0); HEMATOCRIT 37.4 % (36.0-47.0); HEMOGLOBIN 12.7 g/dl (12.0-15.5); LYMPH # 2.3 10^3/uL (1.5-5.0); LYMPH % 23.8 % (24.0-44.0); MEAN CORPUSCULAR HEMOGLOBIN 29.1 pg (27.0-33.0); MEAN CORPUSCULAR VOLUME 85.8 fl (80.0-96.0); MONO # 0.6 10^3/uL (0.0-0.8); MONO % 6.1 % (2.0-8.0); NEUTROPHILS # 6.5 10^3/uL (1.5-8.5); NEUTROPHILS % 68.3 % (36.0-66.0); PLATELET COUNT, AUTOMATED 255 10^3/uL (150-450); RED BLOOD COUNT 4.36 10^6/uL (4.00-5.40); WHITE BLOOD COUNT 9.5 10^3/uL (4.0-10.0)
[2020-11-15] MEDS ORDERED: ONDA4TAB6 PO (22:50)
== END 2020-11-15 23:03 | disposition home or self-care (01) ==
LOC: M ED 15:37
DX: O21.9 Vomiting of pregnancy, unspecified (principal); Z3A.12 12 weeks gestation of pregnancy; Z79.51 Long term (current) use of inhaled steroids; Z79.899 Other long term (current) drug therapy; Z91.048 Other nonmedicinal substance allergy status
CPT/HCPCS: 80047; 81001; 85025; 87086; 96374; 99283; J2405

== ENCOUNTER 2020-11-25 16:33 | Emergency (ER) | payer BC ==
[~2020-11-25] VITALS: Ht 170.2 cm; Wt 81.2 kg
[~2020-11-25 16:33] MED LIST changes: +ONDA4TAB6 PO
[2020-11-25 16:37] VITALS: BP 124/75
[2020-11-26] MEDS ORDERED: REGL10TA6 PO (16:27)
== END 2020-11-25 19:26 | disposition left against medical advice (07) ==
LOC: M ED 16:33
DX: Z53.21 Procedure and treatment not carried out due to patient leaving prior to being seen by health care provider (principal)

== ENCOUNTER 2020-11-26 09:32 | Emergency (ER) | payer BC ==
[~2020-11-26] VITALS: Ht 170.2 cm; Wt 81.6 kg
[2020-11-26 12:28] LABS: BASO % 0.5 % (0.0-1.0); EOS # 0.1 10^3/uL (0.0-0.5); HEMATOCRIT 39.7 % (36.0-47.0); HEMOGLOBIN 13.6 g/dl (12.0-15.5); LYMPH # 1.8 10^3/uL (1.5-5.0); LYMPH % 22.4 % (24.0-44.0); MEAN CORPUSCULAR HEMOGLOBIN 29.1 pg (27.0-33.0); MEAN CORPUSCULAR HGB CONC 34.3 g/dl (32.0-36.5); MONO # 0.5 10^3/uL (0.0-0.8); MONO % 5.9 % (2.0-8.0); NEUTROPHILS # 5.7 10^3/uL (1.5-8.5); PLATELET COUNT, AUTOMATED 291 10^3/uL (150-450); RED BLOOD COUNT 4.67 10^6/uL (4.00-5.40); WHITE BLOOD COUNT 8.1 10^3/uL (4.0-10.0)
[2020-11-26] MEDS ORDERED: METOCLOPRAMIDE INJ 10MG/2ML VIAL (J2765 PER 1) IV ONE (12:30)
[2020-11-26] MEDS ORDERED: MULTIVITAMIN -ADULT INJECTION 10 ML, THIAMINE INJection 100 MG, FOLIC ACID 1 MG in NS 1... IV ONE (12:30)
[2020-11-26 12:52] LABS: BILIRUBIN,DIRECT 0.2 MG/DL (0.0-0.2); BILIRUBIN,TOTAL 0.6 MG/DL (0.2-1.0); TOTAL PROTEIN 7.1 GM/DL (6.4-8.2)
--- NOTE | 2020-11-26 13:45 | REP ---
INDICATION: cramping. COMPARISON: None. TECHNIQUE: Transabdominal 1st trimester obstetric sonography. FINDINGS: Scanning through the gravid uterus and and urinary bladder comfort in the presence of a single living intrauterine gestation. [place]-rump length of the embryonic pole is 24 mm. This corresponds with a gestational age estimate of 9 weeks 1 day. heart rate is recorded at 174 beats per minute. No complication is seen. There is a 2.0 cm hypoechoic area in the maternal left ovary consistent with corpus luteum. IMPRESSION: Viable single intrauterine gestation at 9 weeks 1 day by crown-rump length. GARCIA by sonography 30 June 2021. No complication is identified. <Electronically signed by Gabriel Pinto > 11/26/20 [id number]
[2020-11-26] MEDS ORDERED: REGL10TA6 PO (16:27)
[2020-11-26 16:44] VITALS: BP 117/61
== END 2020-11-26 16:45 | disposition home or self-care (01) ==
LOC: M ED 09:32
DX: O21.9 Vomiting of pregnancy, unspecified (principal); Z3A.09 9 weeks gestation of pregnancy; O99.341 Other mental disorders complicating pregnancy, first trimester; O99.891 Other specified diseases and conditions complicating pregnancy; O99.611 Diseases of the digestive system complicating pregnancy, first trimester; O99.511 Diseases of the respiratory system complicating pregnancy, first trimester
CPT/HCPCS: 76801; 80047; 80076; 81001; 83690; 85025; 93976; 96365; 96366; 96375; 99284; J2765; J3411

== ENCOUNTER → 2020-12-21 | Outpatient (CLI) | payer BC ==
[~2020-12-21] MED LIST changes: +REGL10TA6 PO
[2020-12-21 16:47] LABS: HEMATOCRIT 36.5 % (36.0-47.0); HEMOGLOBIN 12.4 g/dl (12.0-15.5); MEAN CORPUSCULAR HEMOGLOBIN 29.4 pg (27.0-33.0); MEAN CORPUSCULAR VOLUME 86.5 fl (80.0-96.0); PLATELET COUNT, AUTOMATED 288 10^3/uL (150-450); RED BLOOD COUNT 4.22 10^6/uL (4.00-5.40); WHITE BLOOD COUNT 7.5 10^3/uL (4.0-10.0)
[2020-12-21 17:20] LABS: ALBUMIN 3.3 GM/DL (3.2-5.2); ALT/SGPT 14 U/L (12-78); BILIRUBIN,TOTAL 0.4 MG/DL (0.2-1.0); BLOOD UREA NITROGEN 4 MG/DL (7-18); CALCIUM LEVEL 8.7 MG/DL (8.5-10.1); CARBON DIOXIDE LEVEL 25 MEQ/L (21-32); CHLORIDE LEVEL 104 MEQ/L (98-107); CREATININE FOR GFR 0.41 MG/DL (0.55-1.30); FREE T4 0.98 NG/DL (0.76-1.46); GLOMERULAR FILTRATION RATE > 60.0 (>60); GLUCOSE, FASTING 90 MG/DL (70-100); POTASSIUM SERUM 3.9 MEQ/L (3.5-5.1); SODIUM LEVEL 136 MEQ/L (136-145); TOTAL PROTEIN 6.2 GM/DL (6.4-8.2)
[2020-12-21 17:56] LABS: HEPATITIS C VIRUS ABY INDEX 0.1 INDEX (<0.8); HIV 1&2 SCREEN CENTAUR NEGATIVE (NEGATIVE)
[2020-12-21 18:38] LABS: GC DNA AMPLIFICATION NEGATIVE (NEGATIVE)
== END ==
LOC: M WUC 11:22
PROVIDERS: ATTEND Advanced Practice Midwife
DX: Z36.89 Encounter for other specified antenatal screening (principal); Z3A.09 9 weeks gestation of pregnancy

== ENCOUNTER → 2021-02-10 | Outpatient (CLI) | payer BC ==
--- NOTE | 2021-02-10 16:02 | REP ---
INDICATION: ANATOMY. COMPARISON: 11/26/2020. TECHNIQUE: Second trimester anatomy screen protocol FINDINGS: Scanning demonstrates a viable single intrauterine gestation in a variable lie. motion is observed and heart rate is recorded at 152 beats per minute. A posterior, grade zero placenta is seen without evidence of previa. There is a mid cord insertion. Amniotic fluid is subjectively normal. Closed cervical length is measured at 3.3 cm transabdominally. No extrauterine abnormality is observed. There has been appropriate interval growth. No anomaly is seen. The following anatomic structures are identified and felt to be sonographically unremarkable: cranium, cavum, cerebellum and posterior fossa, face and profile, lungs, four-chamber heart with left and right ventricular outflow tract views, diaphragm, left-sided stomach, abdominal wall cord insertion, three-vessel umbilical cord, kidneys and bladder, spine, and upper and lower extremities. There is a small choroid plexus cyst on the left at 4 mm. Biometry chart: BPD 5.2 cm; 21 weeks 5 days Head circumference cm; 20 weeks 6 days Abdominal circumference 15.7 cm; 20 weeks 6 days Femur length 3.3 cm; 20 weeks 2 days Humeral length 3.2 cm; weeks 4 days HC/AC ratio normal 1.18 Cephalic index normal 0.80 Estimated weight 369 grams, 0 pounds 13 ounces, 80th percentile for 20 weeks 0 days. IMPRESSION: Viable single intrauterine gestation at 20 weeks 6 days by today's composite sonographic criteria. Expected gestational age estimate based on prior sonography is 20 weeks is 0 days. GARCIA by prior sonography 06/30/2021. There is a 4 mm choroid plexus cyst on the left, a common finding in this gestational age. It may be rechecked. No anomaly. <Electronically signed by Diony De La Vega > 02/10/21 [id number]
== END ==
LOC: M WHC 14:29
PROVIDERS: ATTEND Advanced Practice Midwife
DX: O09.292 Supervision of pregnancy with other poor reproductive or obstetric history, second trimester (principal); Z36.89 Encounter for other specified antenatal screening; Z3A.20 20 weeks gestation of pregnancy

== ENCOUNTER → 2021-03-08 | Outpatient (CLI) | payer BC | LOC: M PLALAB 14:30 | PROVIDERS: ATTEND Advanced Practice Midwife | DX: O28.3 Abnormal ultrasonic finding on antenatal screening of mother (principal) ==

== ENCOUNTER → 2021-04-06 | Outpatient (CLI) | payer BC ==
[2021-04-06 13:23] LABS: HEMATOCRIT 34.9 % (36.0-47.0); HEMOGLOBIN 11.5 g/dl (12.0-15.5); MEAN CORPUSCULAR VOLUME 91.1 fl (80.0-96.0); PLATELET COUNT, AUTOMATED 235 10^3/uL (150-450); RED BLOOD COUNT 3.83 10^6/uL (4.00-5.40)
== END ==
LOC: M LAB 11:35
PROVIDERS: ATTEND Obstetrics & Gynecology
DX: O09.292 Supervision of pregnancy with other poor reproductive or obstetric history, second trimester (principal); Z3A.00 Weeks of gestation of pregnancy not specified

== ENCOUNTER → 2021-04-22 | Outpatient (CLI) | payer BC | LOC: M WHC 12:28 | PROVIDERS: ATTEND Obstetrics & Gynecology | DX: O09.292 Supervision of pregnancy with other poor reproductive or obstetric history, second trimester (principal); Z3A.30 30 weeks gestation of pregnancy ==

== ENCOUNTER → 2021-06-01 | Outpatient (REF) | payer BC | LOC: M PLALAB 16:18 | PROVIDERS: ATTEND Specialist | DX: Z34.83 Encounter for supervision of other normal pregnancy, third trimester (principal); Z36.85 Encounter for antenatal screening for Streptococcus B ==

== ENCOUNTER 2021-06-16 10:33 | Outpatient (CLI) | payer BC ==
[~2021-06-16] VITALS: Ht 172.7 cm; Wt 90.5 kg
[~2021-06-16 10:33] MED LIST changes: +OMEP10CASR PO
[2021-06-16 11:07] VITALS: BP 146/81
[2021-06-16] MEDS ORDERED: PSEU30TA86 PO (11:07)
[2021-06-16] MEDS ORDERED: HOME MED LIST COMPLETE! XX SCH (11:10)
[2021-06-16 11:38] VITALS: BP 117/69
== END 2021-06-16 12:30 | disposition home or self-care (01) ==
LOC: M LDO 10:33
PROVIDERS: ATTEND Obstetrics & Gynecology
DX: O60.03 Preterm labor without delivery, third trimester (principal); O36.8130 Decreased fetal movements, third trimester, not applicable or unspecified; Z3A.38 38 weeks gestation of pregnancy
CPT/HCPCS: 59025; G0378; G0463

== ENCOUNTER → 2021-06-18 | Outpatient (CLI) | payer BC ==
[~2021-06-18] MED LIST changes: +PSEU30TA86 PO
== END ==
LOC: M LABSMTC 09:00
PROVIDERS: ATTEND Anesthesiology
DX: Z01.818 Encounter for other preprocedural examination (principal); Z11.52 Encounter for screening for COVID-19

== ENCOUNTER 2021-06-23 05:28 | Inpatient (IN) | payer BC ==
[~2021-06-23] VITALS: Ht 172.7 cm; Wt 90.2 kg
[2021-06-23] MEDS ORDERED: BICITRA 30ML SOLN UDC PO ONE (05:55)
[2021-06-23] MEDS ORDERED: ceFAZolin SOD 2 GM in IV 1 EA IV ONE (05:55)
[2021-06-23] MEDS ORDERED: LR 1,000 ML IV SCH ×2 (05:55→09:10)
[2021-06-23] MEDS ORDERED: LACTATED RINGER'S 1000 ML IV ONE (05:55)
[2021-06-23 06:21] LABS: HEMATOCRIT 32.3 % (36.0-47.0); HEMOGLOBIN 10.3 g/dl (12.0-15.5); MEAN CORPUSCULAR HEMOGLOBIN 27.4 pg (27.0-33.0); MEAN CORPUSCULAR HGB CONC 31.9 g/dl (32.0-36.5); MEAN CORPUSCULAR VOLUME 85.9 fl (80.0-96.0); PLATELET COUNT, AUTOMATED 340 10^3/uL (150-450); RED BLOOD COUNT 3.76 10^6/uL (4.00-5.40); WHITE BLOOD COUNT 10.3 10^3/uL (4.0-10.0)
[2021-06-23] MEDS ORDERED: fentaNYL 100 MCG/2 ML INJECTION As Ordered ONE ×3 (08:13→09:02)
[2021-06-23] MEDS ORDERED: ONDANSETRON 4MG/2ML VIAL As Ordered ONE (08:13)
[2021-06-23] MEDS ORDERED: dexameTHASONE 4 MG/ML 1ML VIAL (J1100 PER 1MG) As Ordered ONE (08:13)
[2021-06-23] MEDS ORDERED: propofoL 200 MG/20 ML VIAL As Ordered ONE (08:13)
[2021-06-23] MEDS ORDERED: OXYTOCIN INJ 10 UNITS/ML VIAL (J2590) As Ordered ONE (08:13)
[2021-06-23] MEDS ORDERED: ROCURONIUM BROMIDE 50 MG/5 ML VIAL As Ordered ONE (08:13)
[2021-06-23] MEDS ORDERED: ACETAMINOPHEN 1000MG 100ML IV BTL (OFIRMEV) (J0131 PER 10MG) As Ordered ONE (08:17)
[2021-06-23] MEDS ORDERED: SUCCINYLCHOLINE 100 MG/5 ML SYRINGE (J0330) As Ordered ONE (08:18)
[2021-06-23] MEDS ORDERED: KETOROLAC 60MG 2ML VIAL As Ordered ONE (08:26)
[2021-06-23] MEDS ORDERED: RHOGAM 300 MCG (1500 IU) INJ (J2790) IM SCH (08:50)
[2021-06-23] MEDS ORDERED: oxyCODONE 5MG TAB PO PRN ×3 (08:50→09:20)
[2021-06-23] MEDS ORDERED: SIMETHICONE 80MG CHEW TAB PO PRN (08:50)
[2021-06-23] MEDS ORDERED: MEASLES,MUMPS,RUBELLA VACCINE INJ (MMR-II) (90707) SC SCH (08:50)
[2021-06-23] MEDS ORDERED: ONDANSETRON 4MG/2ML VIAL IV PRN ×2 (08:50→09:10)
[2021-06-23] MEDS: fentaNYL 100 MCG/2 ML INJECTION IV PRN ×4 (09:04→09:22)
[2021-06-23] MEDS ORDERED: MEPERIDINE INJ 25 MG/ML VIAL (J2175) IV PRN (09:10)
[2021-06-23] MEDS ORDERED: METOCLOPRAMIDE INJ 10MG/2ML VIAL (J2765 PER 1) IV PRN (09:10)
[2021-06-23] MEDS ORDERED: METHYLERGONOVINE MALEATE 0.2 MG/ML VIAL (J2210) ONE (09:35)
[2021-06-23] MEDS: PRENATAL VITAMINS CHEWABLE TABLET PO SCH (10:38)
[2021-06-23 11:00] VITALS: BP 117/74
[2021-06-23 11:30] VITALS: BP 124/75
[2021-06-23] MEDS: LR 1,000 ML IV SCH ×2 (12:21→17:22)
[2021-06-23 12:30] VITALS: BP 137/81
[2021-06-23] MEDS: ACETAMINOPHEN 500 MG TAB PO SCH ×2 (14:59→20:46)
[2021-06-23] MEDS: KETOROLAC 30 MG/ML 1ML VIAL IV SCH ×2 (16:07→22:07)
[2021-06-23 17:35] VITALS: BP 120/64
[2021-06-24 02:00] VITALS: BP 127/62
[2021-06-24] MEDS: ACETAMINOPHEN 500 MG TAB PO SCH ×4 (03:15→21:00)
[2021-06-24] MEDS: KETOROLAC 30 MG/ML 1ML VIAL IV SCH (03:15)
[2021-06-24 06:00] VITALS: BP 116/65
[2021-06-24 07:16] LABS: HEMATOCRIT 27.5 % (36.0-47.0); HEMOGLOBIN 8.8 g/dl (12.0-15.5); MEAN CORPUSCULAR HEMOGLOBIN 27.2 pg (27.0-33.0); MEAN CORPUSCULAR VOLUME 84.9 fl (80.0-96.0); PLATELET COUNT, AUTOMATED 306 10^3/uL (150-450); RED BLOOD COUNT 3.24 10^6/uL (4.00-5.40); WHITE BLOOD COUNT 12.8 10^3/uL (4.0-10.0)
[2021-06-24] MEDS: PRENATAL VITAMINS CHEWABLE TABLET PO SCH (09:06)
[2021-06-24 10:00] VITALS: BP 115/63
[2021-06-24] MEDS ORDERED: IBUPROFEN 600MG TAB PO PRN (12:00)
[2021-06-24 14:00] VITALS: BP 112/62
[2021-06-24 18:00] VITALS: BP 122/66
[2021-06-24] MEDS: DOCUSATE SODIUM 100MG CAPSULE PO PRN (19:54)
[2021-06-24 22:00] VITALS: BP 127/67
[2021-06-25 02:00] VITALS: BP 130/82
[2021-06-25] MEDS: ACETAMINOPHEN 500 MG TAB PO SCH ×4 (03:00→20:56)
[2021-06-25 06:00] VITALS: BP 126/64
[2021-06-25] MEDS: PRENATAL VITAMINS CHEWABLE TABLET PO SCH (08:35)
[2021-06-25] MEDS: DOCUSATE SODIUM 100MG CAPSULE PO PRN (08:44)
[2021-06-25 10:00] VITALS: BP 132/67
[2021-06-25 14:00] VITALS: BP 114/72
[2021-06-25 18:03] VITALS: BP 120/68
[2021-06-26] MEDS: ACETAMINOPHEN 500 MG TAB PO SCH ×2 (02:34→08:46)
[2021-06-26 05:28] VITALS: BP 118/68
[2021-06-26] MEDS: PRENATAL VITAMINS CHEWABLE TABLET PO SCH (08:46)
[2021-06-26] MEDS ORDERED: OXYC-517 PO (13:09)
[2021-06-26] MEDS ORDERED: IBUP-1022 PO (13:09)
== END 2021-06-26 13:20 | disposition home or self-care (01) | DRG 540 ==
LOC: M LDI 05:28 → M OBS 10:02
PROVIDERS: ADMIT Obstetrics & Gynecology; ATTEND Obstetrics & Gynecology
PROC: 10D00Z1 Extraction of Products of Conception, Low, Open Approach (ICD-10-PCS; principal; 2021-06-23 07:30)
DX: O75.89 Other specified complications of labor and delivery (principal); Z37.0 Single live birth; Z3A.39 39 weeks gestation of pregnancy

== ENCOUNTER → 2022-07-26 | Outpatient (REF) | payer BC ==
[~2022-07-26] MED LIST changes: +IBUP-1022 PO; +OXYC-517 PO
== END ==
LOC: M SFHCWAGY 17:43
PROVIDERS: ATTEND Obstetrics & Gynecology
DX: Z12.4 Encounter for screening for malignant neoplasm of cervix (principal)
CPT/HCPCS: 87624; G0123

== ENCOUNTER → 2023-07-12 | Outpatient (REF) | payer BC ==
[~2023-07-12] MED LIST changes: -PSEU30TA86 PO; +PSEU30TA87 PO
== END ==
LOC: M SFHCPLAZ 11:57
PROVIDERS: ATTEND Student in an Organized Health Care Education/Training Program
DX: R09.81 Nasal congestion (principal)

== ENCOUNTER → 2023-10-12 | Outpatient (CLI) | payer BC ==
[~2023-10-12] MED LIST changes: +ONDA-282 PO; -ONDA4TAB6 PO
[2023-10-12 15:55] LABS: BASO % 0.4 % (0.0-1.0); EOS # 0.2 10^3/uL (0.0-0.5); EOS % 2.7 % (0.0-3.0); HEMATOCRIT 44.5 % (36.0-47.0); HEMOGLOBIN 14.8 g/dl (12.0-15.5); LYMPH # 2.5 10^3/uL (1.5-5.0); MEAN CORPUSCULAR HEMOGLOBIN 30.4 pg (27.0-33.0); MEAN CORPUSCULAR HGB CONC 33.3 g/dl (32.0-36.5); MEAN CORPUSCULAR VOLUME 91.4 fl (80.0-96.0); MONO # 0.4 10^3/uL (0.0-0.8); MONO % 5.9 % (2.0-8.0); NEUTROPHILS # 3.8 10^3/uL (1.5-8.5); PLATELET COUNT, AUTOMATED 355 10^3/uL (150-450); RED BLOOD COUNT 4.87 10^6/uL (4.00-5.40); WHITE BLOOD COUNT 6.9 10^3/uL (4.0-10.0)
[2023-10-12 16:28] LABS: ALKALINE PHOSPHATASE 55 U/L (46-116); ALT/SGPT 12 U/L (7.0-40); AST/SGOT < 8 U/L (<34); BILIRUBIN,TOTAL 0.8 MG/DL (0.3-1.2); BLOOD UREA NITROGEN 15 MG/DL (9-23); CALCIUM LEVEL 9.6 MG/DL (8.5-10.1); CARBON DIOXIDE LEVEL 30 MMOL/L (20-31); CHLORIDE LEVEL 102 MMOL/L (98-107); CREATININE FOR GFR 0.62 MG/DL (0.55-1.30); FOLLICLE STIMULATING HORMONE 4.6 mIU/ML; GLOMERULAR FILTRATION RATE > 60.0 (>60); GLUCOSE, FASTING 71 MG/DL (60-100); IRON (FE) 123 UG/DL (50-170); LUTEINIZING HORMONE 7.2 mIU/ML; POTASSIUM SERUM 4.9 MMOL/L (3.5-5.1); PROLACTIN 4.89 NG/ML; SODIUM LEVEL 138 MMOL/L (136-145); THYROID STIMULATING HORMONE 4.496 uIU/ML (0.55-4.78); TOTAL IRON BINDING CAPACITY 351 UG/DL (250-425); TOTAL PROTEIN 7.5 G/DL (5.7-8.2)
[2023-10-12 16:30] LABS: FREE T4 1.19 NG/DL (0.89-1.76); TESTOSTERONE 35 NG/DL (14-76)
== END ==
LOC: M PLALAB 11:05
PROVIDERS: ATTEND Student in an Organized Health Care Education/Training Program
DX: N20.0 Calculus of kidney (principal); Z86.39 Personal history of other endocrine, nutritional and metabolic disease; N92.0 Excessive and frequent menstruation with regular cycle

== ENCOUNTER → 2023-11-02 | Outpatient (CLI) | payer BC | LOC: M WHC 11:32 | PROVIDERS: ATTEND Student in an Organized Health Care Education/Training Program | DX: N92.0 Excessive and frequent menstruation with regular cycle (principal) ==

== ENCOUNTER → 2024-04-08 | Outpatient (REF) | payer BC ==
[~2024-04-08] MED LIST changes: -LACT10SO3 PO; +LACT10SO94 PO
== END ==
LOC: M SFHCPLAZ 17:10
PROVIDERS: ATTEND Nurse Practitioner Family
DX: J02.9 Acute pharyngitis, unspecified (principal)

== ENCOUNTER → 2024-05-28 | Outpatient (REF) | payer BC ==
[2024-05-28 18:26] LABS: AMORPHOUS SEDIMENT SMALL (NEGATIVE); APPEARANCE, URINE TURBID (CLEAR); BACTERIA, URINE AUTO 1+ (NEGATIVE); BILIRUBIN, URINE AUTO NEGATIVE (NEGATIVE); BLOOD, URINE BLOOD NEGATIVE (NEGATIVE); COLOR, URINE AMBER (YELLOW); GLUCOSE, URINE (UA) AUTO NEGATIVE (NEGATIVE); KETONE, URINE AUTO NEGATIVE (NEGATIVE); LEUKOCYTE ESTERASE, URINE AUTO NEGATIVE (NEGATIVE); MUCUS, URINE MODERATE (NEGATIVE); NITRITE, URINE AUTO NEGATIVE (NEGATIVE); PROTEIN, URINE AUTO NEGATIVE (NEGATIVE); RBC, URINE AUTO 1 /HPF (0-3); SPECIFIC GRAVITY URINE AUTO 1.024 (1.002-1.035); SQUAMOUS EPITHELIAL CELL UR AU 1 /HPF (0-6); UROBILINOGEN, URINE AUTO 0.2 mg/dL (0.0-2.0); WBC, URINE AUTO 1 /HPF (0-3)
[2024-05-28 19:32] LABS: Trichomonas vaginalis (AMP) NOT DETECTED (NEGATIVE)
== END ==
LOC: M SFHCWAGY 17:17
PROVIDERS: ATTEND Obstetrics & Gynecology
DX: R10.2 Pelvic and perineal pain (principal); N92.0 Excessive and frequent menstruation with regular cycle

== ENCOUNTER → 2024-06-13 | Outpatient (CLI) | payer BC | LOC: M PLALAB 07:22 | PROVIDERS: ATTEND Obstetrics & Gynecology | DX: R79.89 Other specified abnormal findings of blood chemistry (principal) ==

== ENCOUNTER → 2024-06-15 | Outpatient (REF) | payer BC | LOC: M SFHCWAGY 10:51 | PROVIDERS: ATTEND Obstetrics & Gynecology | DX: R79.89 Other specified abnormal findings of blood chemistry (principal) ==

== ENCOUNTER → 2024-06-17 | Outpatient (CLI) | payer BC | LOC: M LAB 16:36 | PROVIDERS: ATTEND Obstetrics & Gynecology | DX: R79.89 Other specified abnormal findings of blood chemistry (principal) ==

== ENCOUNTER → 2024-11-19 | Outpatient (CLI) | payer BC ==
[2024-11-19 11:24] LABS: BASO # 0.1 10^3/uL (0.0-0.2); BASO % 0.8 % (0.0-1.0); EOS # 0.1 10^3/uL (0.0-0.5); EOS % 2.0 % (0.0-3.0); LYMPH # 1.8 10^3/uL (1.5-5.0); LYMPH % 29.7 % (24.0-44.0); MONO # 0.4 10^3/uL (0.0-0.8); MONO % 6.1 % (2.0-8.0); NEUTROPHILS # 3.6 10^3/uL (1.5-8.5); NEUTROPHILS % 61.2 % (36.0-66.0); PLATELET COUNT, AUTOMATED 285 10^3/uL (150-450)
[2024-11-19 11:50] LABS: ALT/SGPT 15 U/L (7.0-40); AST/SGOT 14 U/L (<34); CALCIUM LEVEL 9.3 MG/DL (8.5-10.1); CARBON DIOXIDE LEVEL 26 MMOL/L (20-31); CHLORIDE LEVEL 105 MMOL/L (98-107); CHOLESTEROL LEVEL 148 MG/DL (<200); CHOLESTEROL RISK RATIO 3.57 (<5); CREATININE FOR GFR 0.71 MG/DL (0.55-1.30); FREE T4 1.17 NG/DL (0.89-1.76); GLOMERULAR FILTRATION RATE > 90.0 (>60); LDL CHOLESTEROL 94.4 MG/DL (<100); NON-HDL-C 106.6 MG/DL; POTASSIUM SERUM 4.6 MMOL/L (3.5-5.1); SODIUM LEVEL 140 MMOL/L (136-145); TRIGLYCERIDES LEVEL 61 MG/DL (<150)
[2024-11-19 11:51] LABS: TOTAL 25(OH) VITAMIN D 30.5 NG/ML (20.0-100.0)
== END ==
LOC: M PLALAB 08:59
PROVIDERS: ATTEND Nurse Practitioner Family
DX: Z00.00 Encounter for general adult medical examination without abnormal findings (principal); Z13.220 Encounter for screening for lipoid disorders; R53.83 Other fatigue; E55.9 Vitamin D deficiency, unspecified